=== PATIENT | female | born 1940 | race Hispanic/Latino ===

== ENCOUNTER 2017-05-25 10:01 | Inpatient (IN) | payer MEDICARE ==
[2017-05-25 11:02] LABS: ALT (SGPT) 26 U/L (8-55); AST (SGOT) 23 U/L (5-34); Albumin 3.6 g/dL (3.4-4.8); Alkaline Phosphatase 71 U/L (40-150); Anion Gap 13 mmol/L (10-20); BUN (Urea Nitrogen) 39 mg/dL (9.8-20.1); Bilirubin, Total 0.6 mg/dL (0.2-1.2); Calc. Creatinine Clearance 0 mL/min (70-130); Carbon Dioxide 21 mmol/L (23-31); Chloride 108 mmol/L (98-107); Estimated GFR-MDRD 26; Globulin 3.2 g/dL (2.4-3.5); Glucose 101 mg/dL (83-110); Potassium 3.7 mmol/L (3.5-5.1); Protein, Total 6.8 g/dL (6.0-8.3); Sodium 138 mmol/L (136-145)
[2017-05-25 11:10] LABS: Band 48 % (5-11); Lymphocytes 5 % (21-51); MDiff Complete? YES; Mean Corpuscular Hemoglobin 32.3 pg (27.0-31.0); Mean Platelet Volume 9.9 fL (7.4-10.4); Metamyelocyte 10 % (0-0); Monocytes 4 % (0-10); Neutrophil 31 % (42-75); PLT Morphology Comment Appears Adequate; Platelet Count 230 thou/uL (130-400); RBC Distribution Width 12.6 % (11.5-14.5); Reactive Lymphocytes 2 % (0-10); Red Blood Cell (RBC) Count 3.73 mill/uL (4.20-5.40); Vacuoles SLIGHT; White Blood Cell (WBC) Count 13.5 thou/uL (4.8-10.8)
[2017-05-25 11:14] LABS: CKMB 4.5 ng/mL (0-6.6); Troponin I Less than 0.010 ng/mL (< 0.028)
[2017-05-25 13:09] LABS: Bilirubin Negative (Negative); Blood, Urine Negative (Negative); Clarity CLOUDY (Clear); Glucose, Urine (Dipstick) Negative (Negative); Leukocyte Trace (Negative); Nitrite Negative (Negative); Protein, Urine (Dipstick) Negative (Neg-Trace); Urobilinogen 0.2 mg/dL (0.2-1.0)
[2017-05-25 13:11] LABS: Bacteria/HPF None Seen HPF (None Seen); RBC/HPF 0-3 HPF (0-3); Squamous Epithelial 0-3 HPF (0-3); WBC/HPF 0-3 HPF (0-3)
[2017-05-25 13:13] LABS: Pathc Cast-AUWi Flag 4.94 (0-2.49)
[2017-05-25 13:28] LABS: Crystals/HPF 1+ CA OXALATE HPF (Negative); Hyaline Casts/LPF 4-6 HYALINE CAST LPF (0-3 Hyaline); Other Casts/LPF None Seen LPF (0-3 Hyaline)
[2017-05-25] MEDS ORDERED: Ondansetron HCl/PF 4 MG/2 ML Vial IVP PRN (15:35)
[2017-05-25] MEDS ORDERED: Acetaminophen 325 MG TAB PO PRN (15:35)
[2017-05-25] MEDS ORDERED: Guaifenesin DM 100-10/5 ML UDCUP PO PRN (15:35)
[2017-05-25 16:57] VITALS: BMI 22.6
--- NOTE | 2017-05-25 16:57 | HP ---
REASON FOR ADMISSION/CHIEF COMPLAINT: Sepsis, gastroenteritis with severe dehydration. HISTORY OF PRESENT ILLNESS: The patient gives history of having severe diarrhea from Tuesday. She had first episode of stool incontinence on Tuesday after she went to a green party. She had one episode of vomiting as well on Tuesday night. From Tuesday 2:00 p.m. on, the patient has been having watery diarrhea without blood or mucus in the stool. It is not foul smelling. The patient states that each time she tries to drink the fluid does not stay and the patient has to rae to the bathroom. She has not taken any recent antibiotics. The patient has some mild abdominal discomfort from going many times to the restroom. No complaints of fever, cough, or expectoration. No complaints of urinary frequency or urgency. No other family members are sick with diarrhea who ate at the green party. PAST MEDICAL AND SURGICAL HISTORY: Dementia, diagnosed in 2012; valvular disorder; hysterectomy; dyslipidemia; hypothyroidism; osteoarthritis. CURRENT MEDICATIONS: The patient is on levothyroxine 50 mcg p.o. daily, diclofenac extended release 75 mg p.o. daily, citalopram 5 mg p.o. daily, Seroquel 25 mg p.o. daily. ALLERGIES: No known drug allergies. PERSONAL HISTORY: She does not abuse alcohol or drugs. No history of smoking. FAMILY HISTORY: Mother in her 30s from unknown cause. Father at the age of 65 years, he has had CVA. REVIEW OF SYSTEMS: The following complete review of systems was negative, unless otherwise mentioned in the HPI or below: Constitutional: Weight loss or gain, ability to conduct usual activities. Skin: Rash, itching. Eyes: Double vision, pain. ENT/Mouth: Nose bleeding, neck stiffness, pain, tenderness. Cardiovascular: Palpitations, dyspnea on exertion, orthopnea. Respiratory: Shortness of breath, wheezing, cough, hemoptysis, fever or night sweats. Gastrointestinal: Poor appetite, abdominal pain, heartburn, nausea, vomiting, constipation, or diarrhea. Genitourinary: Urgency, frequency, dysuria, nocturia. Musculoskeletal: Pain, swelling. Neurologic/Psychiatric: Anxiety, depression. Allergy/Immunologic: Skin rash, bleeding tendency. PHYSICAL EXAMINATION: GENERAL: The patient is a 76-year-old female, who is currently not in any acute distress. VITAL SIGNS: Blood pressure on arrival was 70/50, pulse 78 per minute, respiratory rate 14 per minute, temperature 97.6 degrees Fahrenheit, saturating 99% on room air. NECK: Supple, no elevated JVD. HEENT: Eyes: Extraocular muscles intact. Pupils are reacting to light. Oral Cavity: Mucous membranes are dry. No exudates or congestion. CARDIOVASCULAR: S1, S2 heard. RESPIRATORY: Air entry 1+ bilaterally. No rales or rhonchi. ABDOMEN: Soft, bowel sounds heard. No tenderness, rigidity or guarding. EXTREMITIES: No peripheral edema or calf tenderness. VASCULAR SYSTEM: Peripheral pulses 1+ bilateral, no ischemic ulcerations or gangrene. CENTRAL NERVOUS SYSTEM: No gross focal deficits seen. The patient is alert and awake, but not fully oriented. PSYCHIATRIC: The patient's mood is euthymic. No obvious hallucinations or delusions. LABORATORY AND X-RAY FINDINGS: White count of 13, hemoglobin and hematocrit 12 and 36, platelet count 230 with 31% neutrophils, 48% bands, 10% metamyelocytes. Serum bicarbonate is 21, BUN 39, creatinine 1.9, serum glucose 101. Liver enzymes are within normal limits. First set of cardiac enzymes are negative. Albumin is 3.6. Lipase is 7. UA shows trace leukocyte esterase, 0 to 3 wbc's, and no bacteria. EKG done shows normal sinus rhythm at 62 beats per minute. CLINICAL IMPRESSION AND PLAN: The patient will be admitted to medical floor for sepsis, acute kidney injury, severe dehydration, acute gastroenteritis. We will obtain blood, urine, and stool cultures including Clostridium difficile. The patient will be placed on meropenem 1 gram q.8 hourly along with normal saline at 80 mL per hour. She has gotten 2 liters of bolus normal saline in the ER. We will continue her citalopram, levothyroxine, and Seroquel as before. She will be on clear liquid diet until her diarrhea and gastrocolic reflux settles down. CODE STATUS: FULL. I have discussed this with the patient's [id number] and son at bedside and the patient as well. SAMINA
[2017-05-25] MEDS: Sodium Chloride 0.9% 1,000 ML IV SCH (17:27)
[2017-05-25] MEDS: Meropenem 1 GM in Sodium Chloride 0.9% 100 ML IVPB SCH (17:58)
[2017-05-25] MEDS ORDERED: Meropenem 1 GM in Sterile Water 20 ML SLOW IVP SCH (18:00)
[2017-05-25] MEDS: Famotidine 20 MG TAB PO SCH (20:04)
[2017-05-25] MEDS ORDERED: Prevnar 13-Val Conj/PF 0.5 ML SYRINGE IM ONE (21:00)
[2017-05-25] MEDS ORDERED: Meropenem 1 GM in Sodium Chloride 0.9% 100 ML IVPB SCH (22:00)
[2017-05-26] MEDS: Meropenem 1 GM in Sodium Chloride 0.9% 100 ML IVPB SCH ×2 (02:02→09:30)
[2017-05-26] MEDS: Sodium Chloride 0.9% 1,000 ML IV SCH ×2 (04:32→15:25)
[2017-05-26] MEDS: Levothyroxine Sodium 50 MCG TAB PO SCH (05:18)
[2017-05-26 05:33] LABS: ALT (SGPT) 19 U/L (8-55); AST (SGOT) 25 U/L (5-34); Albumin 2.8 g/dL (3.4-4.8); Alkaline Phosphatase 61 U/L (40-150); Anion Gap 11 mmol/L (10-20); BUN (Urea Nitrogen) 30 mg/dL (9.8-20.1); Bilirubin, Total 0.4 mg/dL (0.2-1.2); Calc. Creatinine Clearance 45 mL/min (70-130); Calcium 7.8 mg/dL (7.8-10.44); Carbon Dioxide 18 mmol/L (23-31); Chloride 112 mmol/L (98-107); Estimated GFR-MDRD 52; Globulin 2.3 g/dL (2.4-3.5); Glucose 73 mg/dL (83-110); Potassium 3.6 mmol/L (3.5-5.1); Protein, Total 5.1 g/dL (6.0-8.3); Sodium 137 mmol/L (136-145)
[2017-05-26 05:44] LABS: Band 23 % (5-11); Eosinophils 1 % (0-10); Lymphocytes 22 % (21-51); MDiff Complete? YES; Mean Corpuscular HGB CONC 33.8 g/dL (32.0-36.0); Mean Corpuscular Hemoglobin 33.1 pg (27.0-31.0); Mean Corpuscular Volume 98.1 fl (81.0-99.0); Mean Platelet Volume 10.6 fL (7.4-10.4); Metamyelocyte 1 % (0-0); Monocytes 7 % (0-10); Neutrophil 45 % (42-75); PLT Morphology Comment Appears Adequate; Platelet Count 195 thou/uL (130-400); RBC Distribution Width 12.5 % (11.5-14.5); Red Blood Cell (RBC) Count 3.02 mill/uL (4.20-5.40); White Blood Cell (WBC) Count 8.9 thou/uL (4.8-10.8)
[2017-05-26] MEDS: Escitalopram Oxalate 10 mg Tablet PO SCH (09:00)
[2017-05-26] MEDS ORDERED: Enoxaparin Sodium 30 MG/0.3 ML SYRINGE SC SCH (09:00)
[2017-05-26] MEDS: ALPRAZolam 1 MG TAB PO PRN (12:22)
--- NOTE | 2017-05-26 13:53 | PDOC.PN ---
- Subjective Encounter Start Date: 05/26/17 Encounter Start Time: 08:40 Subjective: son at bedside mentions she still is going multiple times to restroom -: no nausea, is tolerating liq diet - Objective Resuscitation Status: Resuscitation Status FULL:Full Resuscitation MAR Reviewed: Yes Vital Signs & Weight: Vital Signs (12 hours) Temp Pulse Resp BP Pulse Ox 05/26/17 11:26 97.8 F 69 18 103/63 96 05/26/17 08:00 98.6 F 70 16 110/72 96 05/26/17 04:00 98.1 F 70 18 101/62 91 L Weight Weight 136 lb 2 oz I&O: 05/25/17 05/26/17 05/27/17 06:59 06:59 06:59 Intake Total 1690 Balance 1690 Result Diagrams: 05/26/17 04:34 05/26/17 04:34 Phys Exam - Physical Examination HEENT: PERRLA, moist MMs Neck: no JVD, supple Respiratory: no wheezing, no rales Cardiovascular: RRR, no significant murmur Gastrointestinal: soft, non-tender, no distention, positive bowel sounds Musculoskeletal: no edema, pulses present Neurological: non-focal, moves all 4 limbs Dx/Plan (1) Sepsis Code(s): A41.9 - SEPSIS, UNSPECIFIED ORGANISM Status: Acute Qualifiers: Sepsis type: sepsis due to unspecified organism Qualified Code(s): A41.9 - Sepsis, unspecified organism (2) Acute gastroenteritis Code(s): K52.9 - NONINFECTIVE GASTROENTERITIS AND COLITIS, UNSPECIFIED Status : Acute (3) Dehydration Code(s): E86.0 - DEHYDRATION Status: Acute Comment: severe-resolving (4) KATHERYN (acute kidney injury) Code(s): N17.9 - ACUTE KIDNEY FAILURE, UNSPECIFIED Status: Acute Comment: resolving (5) Metabolic acidosis Code(s): E87.2 - ACIDOSIS Status: Acute (6) Dementia Code(s): F03.90 - UNSPECIFIED DEMENTIA WITHOUT BEHAVIORAL DISTURBANCE Status: Chronic Qualifiers: Dementia type: unspecified type (7) Dyslipidemia Code(s): E78.5 - HYPERLIPIDEMIA, UNSPECIFIED Status: Chronic (8) Hypothyroidism Code(s): E03.9 - HYPOTHYROIDISM, UNSPECIFIED Status: Chronic Qualifiers: Hypothyroidism type: unspecified - Plan change meropenem to cefepime and flagyl -: one set of stool cs and cdiff are -ve -: repeat stool cx and cdiff in view of profuse diarrhea -: gentle iv hydration, clear liq diet until diarrhea stabilizes -: GI consult for help if infectious agents are r/o * . Review of Systems - Medications/Allergies Allergies/Adverse Reactions: Allergies Allergy/AdvReac Type Severity Reaction Status Date / Time No Known Allergies Allergy Verified 05/20/16 20:01 Medications: Current Medications Acetaminophen (Tylenol) 650 mg PO Q4H PRN PRN Reason: Headache/Fever or Pain Alprazolam (Xanax) 1 mg PO Q8H PRN PRN Reason: Agitation Last Admin: 05/26/17 12:22 Dose: 1 mg Enoxaparin Sodium (Lovenox) 40 mg SC 0900 [facility] Escitalopram Oxalate (Lexapro) 5 mg PO DAILY [facility] Last Admin: 05/26/17 09:00 Dose: 5 mg Famotidine (Pepcid) 20 mg PO Q24HR [facility] Last Admin: 05/25/17 20:04 Dose: 20 mg Guaifenesin/Dextromethorphan (Robitussin Dm) 15 ml PO Q4H PRN PRN Reason: Cough Sodium Chloride (Normal Saline 0.9%) 1,000 mls @ 80 mls/hr IV .[id number] [facility] Last Admin: 05/26/17 04:32 Dose: Not Given Cefepime HCl 1 gm/ Sodium (Chloride) 100 mls @ 200 mls/hr IVPB Q12HR [facility] Metronidazole 500 mg/ Device 100 mls @ 100 mls/hr IVPB Q8HR [facility] Levothyroxine Sodium (Synthroid) 50 mcg PO 0600 [facility] Last Admin: 05/26/17 05:18 Dose: 50 mcg Ondansetron HCl (Zofran) 4 mg IVP Q6H PRN PRN Reason: Nausea/Vomiting Quetiapine Fumarate (Seroquel) 25 mg PO DAILY [facility] Last Admin: 05/26/17 09:00 Dose: 25 mg
[2017-05-26] MEDS: metroNIDAZOLE 500 MG in Premix Bag 1 BAG IVPB SCH ×2 (15:15→20:51)
[2017-05-26] MEDS: Cefepime 1 GM, Admixture Fee 1 EACH in Sodium Chloride 0.9% 10 ML SLOW IVP SCH (20:51)
[2017-05-26] MEDS: Famotidine 20 MG TAB PO SCH (20:51)
[2017-05-26] MEDS ORDERED: Cefepime 1 GM in Sodium Chloride 0.9% 100 ML IVPB SCH (21:00)
[2017-05-27 04:20] LABS: #Eosinphils 0.5 thou/uL (0.0-0.7); #Lymphocytes 2.7 thou/uL (1.20-3.40); #Monocytes 0.7 thou/uL (0.11-0.59); %Basophils 0.4 % (0.0-1.0); %Monocytes 8.6 % (0.0-10.0); Hemoglobin 9.9 g/dL (12.0-16.0); Mean Corpuscular HGB CONC 34.1 g/dL (32.0-36.0); Mean Corpuscular Hemoglobin 33.2 pg (27.0-31.0); Mean Corpuscular Volume 97.4 fl (81.0-99.0); Mean Platelet Volume 9.9 fL (7.4-10.4); Platelet Count 214 thou/uL (130-400); RBC Distribution Width 12.7 % (11.5-14.5); Red Blood Cell (RBC) Count 2.99 mill/uL (4.20-5.40); White Blood Cell (WBC) Count 7.9 thou/uL (4.8-10.8)
[2017-05-27 04:27] LABS: Anion Gap 6 mmol/L (10-20); BUN (Urea Nitrogen) 17 mg/dL (9.8-20.1); Calc. Creatinine Clearance 64 mL/min (70-130); Calcium 7.8 mg/dL (7.8-10.44); Carbon Dioxide 20 mmol/L (23-31); Chloride 117 mmol/L (98-107); Estimated GFR-MDRD 79; Glucose 74 mg/dL (83-110); Potassium 3.4 mmol/L (3.5-5.1); Sodium 140 mmol/L (136-145)
[2017-05-27] MEDS: Levothyroxine Sodium 50 MCG TAB PO SCH (05:35)
[2017-05-27] MEDS: metroNIDAZOLE 500 MG in Premix Bag 1 BAG IVPB SCH ×3 (05:35→20:11)
[2017-05-27] MEDS: Sodium Chloride 0.9% 1,000 ML IV SCH ×2 (05:35→18:49)
[2017-05-27] MEDS: Escitalopram Oxalate 10 mg Tablet PO SCH (09:34)
[2017-05-27] MEDS: Cefepime 1 GM, Admixture Fee 1 EACH in Sodium Chloride 0.9% 10 ML SLOW IVP SCH ×2 (09:39→20:12)
[2017-05-27] MEDS: Enoxaparin Sodium 40 MG/0.4 ML SYRINGE SC SCH (09:41)
--- NOTE | 2017-05-27 10:26 | CON ---
DATE OF CONSULTATION: 05/26/2017 REFERRING PHYSICIAN: Dr. Aleksandr Hagen. REASON FOR CONSULTATION: Severe diarrhea, sepsis. HISTORY OF PRESENT ILLNESS: Ms. Rasheeda Ho is a 76-year-old fragile looking female who is a patie nt of Dr. Anthony Gary. She has been seeing Dr. Gary over the last couple of years. The patie nt is sleepy at the present time. Apparently, she got some medicine for anxiety. The patient was se en in room along with the patient's [id number]-uf-stn and son. The patient's family tells me that she had no GI problem before this Tuesday. Apparently, she went out to eat food with grandson. She had s ome barbecue and some of the food on Tuesday evening. Now she says she is having severe nausea, vomit ing, and multiple loose stools. Before that she actually had no GI problems at all. Apparently, she went to the park to have this dinner with the family. Two of other family members also had same pro blem. The patient's nausea and vomiting subsided. However, the diarrhea persisted. The patient als o felt very weak and lethargic, minimally energy. The patient has a history of Alzheimer dementia ov er the last couple of years. The patient was taking care of herself like bathing and eating, etc., b ut recently she is not able to taking care of herself. Yesterday, bowel function is difficult to man age and does have incontinence off and on. The patient has had no recent antibiotic intake. There i s no history fever or chills. No hematochezia, melena, or any hematemesis. The patient had no prior GI symptoms. ALLERGIES: None. SOCIAL HISTORY: The patient is from her , claims he left her 2 years ago. She does not smoke or drink alcohol. MEDICAL ILLNESSES: 1. Dementia since 2012. 2. History of hysterectomy. 3. Dyslipidemia. 4. Hypothyroidism. 5. Osteoarthritis. MEDICATIONS: At time of admission include, 1. Levothyroxine 50 mcg once a day. 2. Diclofenac ER 70 mg p.o. once a day. 3. Citalopram 5 mg p.o. daily. 4. Seroquel 25 mg once a day. FAMILY HISTORY: Mother in her 30s from unknown cause. Father at age of 60 years, had CVA. No family history of any cancer. No heart disease. REVIEW OF SYSTEMS: Constitutional: No weight loss, no fever, has good appetite. Central nervous sy stem: No history of TIA, no chronic headache, no syncope, no seizure disorder. Respiratory: No his tory of chronic cough, hemoptysis, dyspnea. Cardiovascular: No chest pain. No palpitation. No dys pnea, orthopnea or PND. Gastrointestinal: Nausea and vomiting and also severe diarrhea. The patien t has had no stools since late last night. The patient was seen at 4:00 and whole day has more diarr hea. Genitourinary: No history of dysuria or frequent urination. Neurologic/Psychiatric: History of anxiety and depression. PHYSICAL EXAMINATION: GENERAL: The patient appears sleepy at the present time. She is in no distress. VITAL SIGNS: Afebrile, pulse 78, blood pressure 120/70. HEENT: Conjunctivae clear. NECK: Supple. No adenitis or thyromegaly noted. CARDIOVASCULAR: First and second heart sounds normal. LUNGS: Clear to auscultation. ABDOMEN: Soft to palpate. Abdomen is nondistended. Abdomen is nontender. There is no organomegaly or masses. EXTREMITIES: No edema. LABORATORY: On admission, WBC count was 13,000, now is 8.9, bandemia of 23,000. Polymorphs 42. Hem oglobin 10, hematocrit 29.7. Platelet count 175,000. Serum sodium 137; potassium 3.6; chloride 112; bicarbonate 18; BUN is 30, which was 39 on admission with rehydration coming down to 30; creatinine on admission 1.90, coming down to 1.03. Serum albumin is slightly low at 2.8, total protein 5.1. St ool for C. difficile, Campylobacter culture everything came back negative. Blood cultures negative f or any bacteria. CLINICAL IMPRESSION: 1. A 76-year-old female with acute onset of nausea and vomiting, and diarrhea. This happened Tuesday evening after her meals in a park with the family. Two of her family members had same symptoms ____ _. 2. Prerenal azotemia based on the history, I believe she most likely food poisoning or infecti ous diarrhea. The diarrhea actually stopped over the last 12 hours. The stools study negative. She is on empiric antibiotic therapy. She has clear liquid at the present time. RECOMMENDATIONS: Continue clear liquid diet until tomorrow. There is no record of diarrhea, conside r advancing diet. From a GI standpoint, no further recommendations.
--- NOTE | 2017-05-27 12:47 | PRG ---
DATE OF SERVICE: 05/27/2017 SUBJECTIVE: Ms. Rasheeda Ho is a 76-year-old female with nausea, vomiting, and diarrhea. The gianna ent's nausea and vomiting resolved. Also, the diarrhea seems to be slowing down. The patient had no diarrhea towards yesterday, but she has some stool last night. This morning, she had no stool. She is tolerating diet. She is sleeping most of the time. She appears very comfortable, in no distress . OBJECTIVE: VITAL SIGNS: Temperature 97.3 degrees Fahrenheit, pulse is 51, blood pressure 152/57. CARDIOVASCULAR: Lungs within normal limits. ABDOMEN: Soft to palpate. Abdomen is nondistended. Abdomen is nontender. LABORATORY DATA: Shows the BUN coming back to normal. Chem-7 today shows sodium of 140, potassium 3 .4, chloride 117, bicarbonate 20, BUN is back to normal at 17, creatinine 0.72. CBC shows WBC 7900, hemoglobin 9.9, hematocrit 29.1. RECOMMENDATIONS: 1. Diet as tolerated. 2. As the diarrhea appears resolving, from GI standpoint, she can be discharged home in the next 24 hours.
[2017-05-27] MEDS ORDERED: Potassium Chloride 20 MEQ TAB PO SCH (16:45)
--- NOTE | 2017-05-27 16:50 | PDOC.PN ---
- Subjective Encounter Start Date: 05/27/17 Encounter Start Time: 16:48 Ms. Ho was seen today in follow-up. She has been eating solid food, without difficulty. She denies any abdominal pain, and the diarrhea has resolved. - Objective Resuscitation Status: Resuscitation Status FULL:Full Resuscitation MAR Reviewed: Yes Vital Signs & Weight: Vital Signs (12 hours) Temp Pulse Resp BP Pulse Ox 05/27/17 08:00 97.3 F L 51 L 18 05/27/17 07:52 97.3 F L 51 L 18 152/57 H 91 L Weight Weight 136 lb 2 oz I&O: 05/26/17 05/27/17 05/28/17 06:59 06:59 06:59 Intake Total 1690 2160 Balance 1690 2160 Result Diagrams: 05/27/17 03:44 05/27/17 03:44 Phys Exam - Physical Examination HEENT: PERRLA Respiratory: no wheezing, no rales, no rhonchi, clear to auscultation bilateral Cardiovascular: RRR, no significant murmur, no rub Gastrointestinal: soft, non-tender, no distention, positive bowel sounds Musculoskeletal: no edema, pulses present Neurological: non-focal Dx/Plan (1) Acute gastroenteritis Code(s): K52.9 - NONINFECTIVE GASTROENTERITIS AND COLITIS, UNSPECIFIED Status : Acute (2) KATHERYN (acute kidney injury) Code(s): N17.9 - ACUTE KIDNEY FAILURE, UNSPECIFIED Status: Acute Comment: resolving (3) Dementia Code(s): F03.90 - UNSPECIFIED DEMENTIA WITHOUT BEHAVIORAL DISTURBANCE Status: Chronic Qualifiers: Dementia type: unspecified type - Plan * Gastroenteritis- presumed infectious- improved * Acute kidney injury- also improved * Stool studies are negative, and if she has continued improvement, suspect she can be discharged home in AM.
[2017-05-27] MEDS: Famotidine 20 MG TAB PO SCH (20:12)
[2017-05-28] MEDS: ALPRAZolam 1 MG TAB PO PRN (02:56)
[2017-05-28] MEDS: Sodium Chloride 0.9% 1,000 ML IV SCH (05:58)
[2017-05-28] MEDS: metroNIDAZOLE 500 MG in Premix Bag 1 BAG IVPB SCH (05:59)
[2017-05-28] MEDS: Levothyroxine Sodium 50 MCG TAB PO SCH (05:59)
[2017-05-28 07:46] VITALS: BP 137/76; TEMP 98.1
[2017-05-28] MEDS: Cefepime 1 GM, Admixture Fee 1 EACH in Sodium Chloride 0.9% 10 ML SLOW IVP SCH (10:08)
[2017-05-28] MEDS: Escitalopram Oxalate 10 mg Tablet PO SCH (10:08)
[2017-05-28] MEDS: Enoxaparin Sodium 40 MG/0.4 ML SYRINGE SC SCH (10:08)
--- NOTE | 2017-05-28 13:47 | PDOC.PN ---
- Subjective Encounter Start Date: 05/28/17 Encounter Start Time: 13:46 Ms. Ho is feeling much better this morning. She has much less diarrhea . - Objective Resuscitation Status: Resuscitation Status FULL:Full Resuscitation MAR Reviewed: Yes Vital Signs & Weight: Vital Signs (12 hours) Temp Pulse Resp BP Pulse Ox 05/28/17 08:00 98.1 F 56 L 18 91 L 05/28/17 07:44 98.1 F 56 L 18 137/76 91 L 05/28/17 06:10 97.8 F 61 16 147/85 H 93 L Weight Weight 136 lb 2 oz I&O: 05/27/17 05/28/17 05/29/17 06:59 06:59 06:59 Intake Total 2160 2990 Balance 2160 2990 Result Diagrams: 05/27/17 03:44 05/27/17 03:44 Phys Exam - Physical Examination HEENT: PERRLA Respiratory: no wheezing, no rales, no rhonchi, clear to auscultation bilateral Cardiovascular: RRR, no significant murmur, no rub Gastrointestinal: soft, non-tender, no distention, positive bowel sounds Musculoskeletal: no edema Dx/Plan (1) Acute gastroenteritis Code(s): K52.9 - NONINFECTIVE GASTROENTERITIS AND COLITIS, UNSPECIFIED Status : Acute (2) KATHERYN (acute kidney injury) Code(s): N17.9 - ACUTE KIDNEY FAILURE, UNSPECIFIED Status: Acute Comment: resolving (3) Dementia Code(s): F03.90 - UNSPECIFIED DEMENTIA WITHOUT BEHAVIORAL DISTURBANCE Status: Chronic Qualifiers: Dementia type: unspecified type - Plan * Gastroenteritis- presumed infectious- resolving * Stable for discharge home..
--- NOTE | 2017-05-28 19:59 | EKG ---
Test Reason : Blood Pressure : / mmHG Vent. Rate : 062 BPM Atrial Rate : 062 BPM P-R Int : 148 ms QRS Dur : 086 ms QT Int : 426 ms P-R-T Axes : 061 027 049 degrees QTc Int : 432 ms Normal sinus rhythm Nonspecific ST and T wave abnormality Abnormal ECG Confirmed by J CARLOS GILL ([id number]), desk editor LEWIS MARIN ([id number]) on 05/28/2017 7:59:18 PM Referred By: Confirmed By:J CARLOS GILL
--- NOTE | 2017-05-28 23:57 | DIS ---
DATE OF ADMISSION: 05/25/2017 DATE OF DISCHARGE: 05/28/2017 PRIMARY CARE PHYSICIAN: Dr. Anthony Gary. DISCHARGE DISPOSITION: Home. PRIMARY DISCHARGE DIAGNOSES: 1. Gastroenteritis, presumed infectious. 2. Dementia. 3. History of hypothyroidism. 4. Osteoarthritis. 5. Dyslipidemia. DISCHARGE MEDICATIONS: Include Flagyl or metronidazole 500 mg 3 times a day for 3 days, Seroquel 25 mg at bedtime, levothyroxine 50 mcg daily, escitalopram 5 mg daily, diclofenac 75 mg twice a day, and alprazolam 0.25 mg twice a day as needed. CODE STATUS: FULL CODE. ALLERGIES: No known drug allergies. HOSPITAL COURSE: Ms. Ho is a very pleasant 76-year-old female who was brought to the hospital af ter she had an explosive watery diarrhea which had been going on for several days prior to admission. She was admitted and started on IV fluids as well as empiric IV antibiotics. She was evaluated by Gastroenterology. It was felt that the diarrhea was likely due to a gastroenteritis, likely infectio us. During the course of her admission, the diarrhea slowed down. She initially had a leukocytosis which resolved and also had an acute renal failure due to dehydration and this resolved as well. At the time of discharge, there were no warning signs such as fever, abdominal pain, or blood in the sto ols and she was discharged home to continue a course of Flagyl and to have [facility].
--- NOTE | 2017-06-03 08:10 | PQF ---
GABRIEL BOBO TONI MD [id number] CLINICAL DOCUMENTATION CLARIFICATION FORM: POST DISCHARGE YOUR INPUT IS NEEDED TO CORRECTLY CODE A DIAGNOSIS FOR YOUR PATIENT. DATE: 06/03/2017 ATTN: Dr. Rich Please exercise your independent, professional judgment in responding to the clarification form. Clinical indicators are provided on the bottom of this form for your review Please check appropriate box(s) to clarify if the following diagnosis has been ruled in or ruled out: Sepsis [ X ] Ruled in diagnosis [ ] Continue to treat [ ] Resolved [ ] Ruled out diagnosis [ ] Cannot rule out diagnosis [ ] Other diagnosis (please specify) [ ] Unable to determine In addition, please specify: Present on Admission (POA): [X ] Yes [ ] No [ ] Unable to determine For continuity of documentation, please document condition throughout progress notes and discharge summary. Thank You. CLINICAL INDICATORS - SIGNS / SYMPTOMS / LABS Per H&P: The patient will be admitted to the medical floor for sepsis, acute kidney injury, severe dehydration, acute gastroenteritis. Per 05/26 Hospitalist progress note: Sepsis. Per Consultation note: Severe diarrhea, sepsis. RISK FACTORS (per discharge summary) Presumed infectious gastroenteritis. TREATMENTS Meropenem 1 gram q 8. Cefepime IV q 12.. Flagyl. IV fluids 80 mL per hour. . (This form is maintained as a part of the permanent medical record) 2014 [employer]. All Rights Reserved Francisca [email or web address] [phone] [email or web address]
== END 2017-05-28 14:58 | disposition home or self-care (01) | DRG 872 ==
LOC: ERS 10:01 → T4-A 14:36
PROVIDERS: ADMIT Internal Medicine; ATTEND Internal Medicine
DX: A41.9 Sepsis, unspecified organism (principal); N17.9 Acute kidney failure, unspecified; E87.2 Acidosis; A09 Infectious gastroenteritis and colitis, unspecified; E86.0 Dehydration; G30.9 Alzheimer's disease, unspecified; F02.80 Dementia in other diseases classified elsewhere, unspecified severity, without behavioral disturbance, psychotic disturbance, mood disturbance, and anxiety; E78.5 Hyperlipidemia, unspecified; E03.9 Hypothyroidism, unspecified; M19.90 Unspecified osteoarthritis, unspecified site; Z79.899 Other long term (current) drug therapy
CPT/HCPCS: 36415; 51701; 80048; 80053; 81003; 81015; 82553; 83605; 83690; 84484; 85025; 85060; 87040; 87045; 87046; 87086; 87324; 87449; 87899; 90471; 90670; 93005; 96360; 96361; A4216; A4353; G0009; J0692; J1650; J2185; J7050

== ENCOUNTER 2018-06-25 19:33 | Inpatient (IN) | payer MEDICARE ==
[2018-06-25 20:19] LABS: Bilirubin Negative (Negative); Blood, Urine Trace (Negative); Clarity CLOUDY (Clear); Glucose, Urine (Dipstick) Negative (Negative); Leukocyte Large (Negative); Nitrite Positive (Negative); Protein, Urine (Dipstick) 30 mg/dL (Neg-Trace); Specific Gravity, Urine 1.014 (1.002-1.036); Urobilinogen 0.2 mg/dL (0.2-1.0); pH, Urine 5.5 (5.0-9.0)
[2018-06-25 20:21] LABS: Bacteria/HPF 4+ HPF (None Seen); RBC/HPF 0-3 HPF (0-3); Squamous Epithelial None Seen HPF (0-3)
[2018-06-25 20:22] LABS: Pathc Cast-AUWi Flag 4.48 (0-2.49)
[2018-06-25 20:29] LABS: Hyaline Casts/LPF 0-3 HYALINE CAST LPF (0-3 Hyaline); Other Casts/LPF None Seen LPF (0-3 Hyaline)
[2018-06-25 20:30] LABS: #Eosinphils 0.1 thou/uL (0.0-0.7); #Monocytes 0.1 thou/uL (0.11-0.59); #Neutrophils 6.4 thou/uL (1.40-6.50); %Basophils 0.3 % (0.0-1.0); %Eosinophils 0.8 % (0.0-10.0); %Lymphocytes 13.5 % (21.0-51.0); %Monocytes 1.3 % (0.0-10.0); %Neutrophils 84.1 % (42.0-75.0); Hemoglobin 8.7 g/dL (12.0-16.0); Mean Corpuscular HGB CONC 32.6 g/dL (32.0-36.0); Mean Corpuscular Hemoglobin 29.1 pg (27.0-31.0); Mean Corpuscular Volume 89.1 fL (78.0-98.0); Mean Platelet Volume 9.6 fL (7.4-10.4); Platelet Count 256 thou/uL (130-400); RBC Distribution Width 15.2 % (11.5-14.5); Red Blood Cell (RBC) Count 2.99 mill/uL (4.20-5.40); White Blood Cell (WBC) Count 7.7 thou/uL (4.8-10.8)
[2018-06-25 20:52] LABS: ALT (SGPT) 38 U/L (8-55); AST (SGOT) 39 U/L (5-34); Albumin 2.8 g/dL (3.4-4.8); Alkaline Phosphatase 250 U/L (40-150); Anion Gap 17 mmol/L (10-20); BUN (Urea Nitrogen) 74 mg/dL (9.8-20.1); Bilirubin, Total 0.3 mg/dL (0.2-1.2); Calc. Creatinine Clearance 0 mL/min (70-130); Calcium 7.7 mg/dL (7.8-10.44); Carbon Dioxide 20 mmol/L (23-31); Chloride 102 mmol/L (98-107); Estimated GFR-MDRD 19; Globulin 2.9 g/dL (2.4-3.5); Glucose 121 mg/dL (83-110); Potassium 4.2 mmol/L (3.5-5.1); Protein, Total 5.7 g/dL (6.0-8.3); Sodium 135 mmol/L (136-145)
[2018-06-25] MEDS ORDERED: Ondansetron PF 4 MG/2 ML Vial ONE (21:26)
[2018-06-25] MEDS ORDERED: cefTRIAXone\\ROCEPHIN 1 GM VIAL ONE (21:26)
[2018-06-25 21:31] LABS: INR-International Normal Ratio 1.2; Prothrombin Time 14.8 SEC (12.0-14.7)
--- NOTE | 2018-06-25 22:09 | CT ---
CT HEAD WITHOUT CONTRAST: Date: 06-25-18 Comparison: None. History: Syncope. Technique: Axial CT imaging at 5 mm intervals from vertex through the skull base without contrast. FINDINGS: Imaged paranasal sinuses and mastoid air cells well aerated. No displaced calvarial fracture, intracr anial hemorrhage, midline shift or mass effect. There is moderate diffuse cerebral volume loss with associated prominence of the CSF containing space s. IMPRESSION: Cerebral volume loss. No intracranial hemorrhage or displaced calvarial fracture. POS: OFF
--- NOTE | 2018-06-25 22:20 | RAD ---
Portable frontal chest radiograph: 06/25/2018 COMPARISON: 05/20/2016 HISTORY: Syncope FINDINGS: Lungs are clear. Heart and mediastinal contours appear within normal limits. IMPRESSION: No acute findings.
[2018-06-25] MEDS ORDERED: Pantoprazole 40 MG VIAL ONE (22:47)
[2018-06-26 00:25] VITALS: BMI 26.3
[2018-06-26] MEDS ORDERED: Sodium Chloride 0.9% 1,000 ML IV SCH (00:43)
[2018-06-26] MEDS ORDERED: Ondansetron ODT 4 MG TAB SL PRN (00:43)
[2018-06-26] MEDS ORDERED: Ondansetron PF 4 MG/2 ML Vial IVP PRN (00:43)
[2018-06-26] MEDS ORDERED: HYDROcodone/Acetaminophen 5/325 mg Tablet PO PRN ×2 (00:43)
[2018-06-26] MEDS ORDERED: Acetaminophen 325 MG TAB PO PRN (00:43)
--- NOTE | 2018-06-26 04:51 | HP ---
CHIEF COMPLAINT: Syncope. HISTORY OF PRESENT ILLNESS: Ms. Ho is a 77-year-old woman, who was brought in by EMS due to a syncopal episode. Apparently 2 family members were helping her walk when she fainted. They lowered her to the ground and state that she recovered within 30 seconds. She had no seizure-like activity. Did not sustain any injuries. She described to have a "gurgling" type breathing, this resolved. Per ED note, she was reported to have complained of abdominal/flank pain and experienced 3 episodes of vomiting earlier today. They also noted that her urine smelled strongly in the last few days. She has also had a cough for the last week. Per reports, she had normal bowel movement yesterday without any blood in her stools. No fevers, chills, or sweats. Difficult to obtain additional information due to patient having Alzheimer's at baseline and family not being at bedside. PAST MEDICAL HISTORY: 1. Hypertension. 2. Valvular disease. 3. Hyperlipidemia. 4. Dementia. PAST SURGICAL HISTORY: 1. Hysterectomy. 2. Left knee surgery. SOCIAL HISTORY: The patient does not smoke or drink any alcohol. No illicit drug use. ALLERGIES: NO KNOWN DRUG ALLERGIES. CURRENT MEDICATIONS: 1. Levothyroxine. 2. Diclofenac. 3. Quetiapine. 4. Citalopram. PHYSICAL EXAMINATION: GENERAL: The appears well developed, is resting in bed, groaning occasionally. She does not seem to be in any acute distress VITAL SIGNS: Temperature 98.8, pulse 75, respirations 16, O2 saturation 98% on room air, blood pressure 99/53. HEENT: Normocephalic and atraumatic. Pupils are equal, round, and reactive to light. Sclerae without icterus. Difficult to assess oropharynx as patient not opening her mouth. She is sleeping. Also known to be easily agitated and combative due to dementia. NECK: Supple. No apparent discomfort with palpation. CARDIAC: Regular rate and rhythm. LUNGS: Clear bilaterally. No appreciable rales. ABDOMEN: Soft. Nondistended. No apparent discomfort with palpation. No apparent renal angle tenderness. EXTREMITIES: No lower leg edema or swelling. NEUROLOGIC: The patient with underlying dementia, noncommunicative. SKIN: Without rash or jaundice. LABORATORY DATA: White blood count 10.7, hemoglobin 8.7, hematocrit 26.6, platelets 256. PT 14.8, INR 1.2. Sodium 135, potassium 4.2, chloride 102, anion gap 17, carbon dioxide 20, BUN 74, elevated from previous level of 17, creatinine 2.45, also elevated from 0.72, GFR 19, elevated from last reading of 79 approximately 1 year ago. Lactic acid 1.5, calcium 7.7, total bilirubin 0.3, AST 39, ALT 30, alkaline phosphatase 252. Troponin negative. BNP 244. Albumin 2.8, lipase 75 Urine notable for 30 of protein, trace blood, positive nitrites, large leukocyte esterase, greater than 50 white blood cells, 4+ bacteria. IMAGING DATA: 1. Chest x-ray showed no acute findings. 2. CT brain showed cerebral volume loss. No intracranial hemorrhage or displaced calvarial fracture. IMPRESSION AND PLAN: Ms. Ho is a 77-year-old woman with Alzheimer's, who is noncommunicative and easily agitated, presenting with what is described as a syncopal episode while 2 family members were helping her walk. She did not sustain any injury and was lowered to the ground. She recovered within 30 seconds. Following assessment in the ED, she was diagnosed with urinary tract infection, put on antibiotics and admitted for further management. Upon review of her investigations, it is noted she has a severe acte kidney injury. Given the reports earlier in the day from the family of the patient having flank pain, there is a possibility she might have a ureteral stone/pyelonephritis. Her vital signs are notable for blood pressure of 99/53. White count unremarkable and lactic acid normal. Nonetheless, we will obtain a CT stone protocol. We will continue antibiotics and follow up on results. 1. Alzheimer's, resume Seroquel. 2. Hypothyroidism. We will request thyroid stimulating hormone, T4 and resume levothyroxine. 3. Syncope. We will obtain orthostatic blood pressures. We will add on magnesium. Further investigations to be determined by Day Team. 4. CT brain was negative and syncopal episode likely due to underlying infection and possibly kidney stone. 5. Gastrointestinal prophylaxis. 6. Deep venous thrombosis prophylaxis with mechanical sequential compression devices. 7. Code status unknown at present. The patient's case was discussed with attending who agrees upon care as described above. Job ID: [id number]
[2018-06-26 06:10] LABS: Hemoglobin 6.4 g/dL (12.0-16.0)
[2018-06-26] MEDS: Levothyroxine Sodium 50 MCG TAB PO SCH (07:30)
--- NOTE | 2018-06-26 07:32 | CT ---
PRELIMINARY REPORT/[facility]/EMERGENCY AFTER HOURS PROCEDURE: EXAM: CT Abdomen and Pelvis Without Contrast EXAM DATE/TIME: 06/26/2018 2:16 AM CLINICAL HISTORY: 77 years old, female; Abdominal pain; Prior surgery; Patient HX: 77f brought in via EMS for C/O syncopal episode at home. Also report C/O abdominal/left flank pain and 3 episodes of vomiting today, as well as foul smelling urine the past few days and some incontinence. Normal bm yesterday, no hematemesis, rectal bleeding or melena. Surgical history of hysterectomy TECHNIQUE: Imaging protocol: Axial computed tomography images of the abdomen and pelvis without contrast. COMPARISON: No relevant prior studies available. FINDINGS: Lower chest: Bilateral small pleural effusions. Few small pleural calcifications. Few small periphera l nonspecific nodular opacities. Moderate-sized hiatal hernia. Mild cardiomegaly. ABDOMEN: Liver: No acute findings. No mass. Gallbladder and bile ducts: No calcified stones. No ductal dilation. Pancreas: No acute findings. No ductal dilation. Spleen: No acute findings. No splenomegaly. Adrenals: No acute findings. No mass. Kidneys and ureters: No obstructing stone. No hydronephrosis. Stomach and bowel: Fecal loading. Diverticulosis. No evidence of bowel obstruction. Appendix: No evidence of appendicitis. PELVIS: Bladder: No stones. Reproductive: No acute findings. ABDOMEN and PELVIS: Intraperitoneal space: No free air. No significant fluid collection. Bones/joints: No acute fracture. Soft tissues: No acute findings. Vasculature: Atherosclerotic calcifications. No aortic aneurysm. Lymph nodes: No significant adenopathy. IMPRESSION: No acute findings within the abdomen and pelvis. Hiatal hernia. Small pleural effusions. Mild cardiomegaly. Other findings above. Thank you for allowing us to participate in the care of your patient. Dictated and Authenticated by: Miguel Angel Bean MD 06/26/2018 4:07 AM Central Time ([place] & [place]) FINAL REPORT CT ABDOMEN AND PELVIS PERFORMED ON AN EMERGENCY BASIS: Date: 06/26/18 Time: 0217 hours HISTORY: Left flank pain. FINDINGS/IMPRESSION: Agree with the preliminary report by Dr. Bean from [facility]. No CT evidence of urinary tract obstruction or calcification. Lack of contrast limits evaluation for other abnormalities. Small hiatal hernia. Small bilateral pleural effusions. Atherosclerosis. Transcribed Date/Time: 06/26/2018 7:44 AM
[2018-06-26 11:19] LABS: Albumin 2.2 g/dL (3.4-4.8); Anion Gap 11 mmol/L (10-20); BUN (Urea Nitrogen) 64 mg/dL (9.8-20.1); BUN/Creatinine Ratio 32.49; Calc. Creatinine Clearance 26 mL/min (70-130); Calcium 7.5 mg/dL (7.8-10.44); Carbon Dioxide 20 mmol/L (23-31); Chloride 109 mmol/L (98-107); Estimated GFR-MDRD 25; Glucose 86 mg/dL (83-110); Potassium 3.8 mmol/L (3.5-5.1); Sodium 136 mmol/L (136-145)
[2018-06-26 13:15] LABS: Iron Less than 8 ug/dL (50-170); Iron Binding Capacity, Total 160 mcg/dL (265-497)
[2018-06-26 14:05] LABS: Creatinine, Urine 53.5 mg/dL (47-110)
[2018-06-26 14:23] LABS: Ferritin 91.66 ng/mL (10-291); Free T4 (Free Thyroxine) 0.61 ng/dL (0.70-1.48); Thyroid Stimulating Hormone 0.9666 uIU/mL (0.35-4.94)
--- NOTE | 2018-06-26 15:10 | PRG ---
DATE OF SERVICE: 06/26/2018 SUBJECTIVE: The patient is seen and examined at the bedside. There are 2 family members, the patient's son and his present in the room during my visit. They stated that she was getting sicker gradually. Before several days ago, she was able to walk, but last few days, she stopped eating, stopped drinking, and became more comatose, and she slept a lot. There was no any fever or chills. OBJECTIVE: VITAL SIGNS: Blood pressure is 120/72, temperature is 97.3, pulse is 67, respiratory rate is 16, O2 saturation is 93% on room air. HEENT: Her pupils are very small. Sclerae are nonicteric. Oral mucosa is somewhat dry. NECK: Supple. LUNGS: Clear. HEART: S1 and S2 are normal. No S3. No S4. ABDOMEN: Soft and nondistended. Bowel sounds present. No organomegaly. EXTREMITIES: No clubbing, cyanosis, or edema. NEUROLOGIC: She is in comatose state. She is able to move her all 4 extremities. She is arousable, but she falls asleep quickly. SKIN: No rash or erythema. LABORATORY DATA: Hemoglobin down to 6.4, hematocrit 19.2. Chemistry shows sodium of 136, potassium 3.8, chloride 109, CO2 of 20, BUN 64, creatinine 1.97, calcium 7.5. Iron is less than 8, total iron binding capacity is 160. Phosphorus 4.0. Ammonia 34. Albumin 2.2. Urine creatinine is 53.5, urine sodium is 28, and random protein in urine is 25. Microbiology, presumptive E. coli. IMPRESSION: 1. mental status, could be related to current urinary tract infection. We will rehydrate her, give her Rocephin for her urinary tract infection and see whether she gets better. 2. Baseline Alzheimer dementia. 3. Hypothyroidism. 4. Normocytic anemia. PLAN: To transfuse her with 2 units of packed red blood cells. Check guaiac stool x1. Do echocardiogram. Check thyroid; free T3, free T4, and TSH. Case Management to be involved for [facility] placement. I believe that her pupils are small because of the Seroquel use, and this is going to get better. Job ID: [id number]
[2018-06-26] MEDS ORDERED: Dextrose 5%-Lactated Ringers 1,000 ML IV SCH (15:45)
[2018-06-26] MEDS ORDERED: Albumin 25% 25 GM/100 ML BOT IVPB SCH (16:15)
--- NOTE | 2018-06-26 16:57 | CON ---
DATE OF CONSULTATION: 06/26/2018 CONSULTING PROVIDER: GLORIA Gilbert. ATTENDING PHYSICIAN: Kamran Lang MD REASON FOR CONSULTATION: Acute kidney injury. HISTORY OF PRESENT ILLNESS: A 77-year-old female who was brought in by relatives after an episode of syncope. The patient reportedly has been progressively getting weak in the last few days prior to presentation associated with poor oral intake. The patient was being helped out of a chair and subsequently collapsed. She was reportedly laid on the floor with improvement in mental status within 30 minutes. There was no involuntary movements. She was subsequently found to have leukouria suggestive of UTI as well as acute kidney injury and was admitted for further evaluation and treatment. Nephrology consult was requested due to acute kidney injury. The patient was unable to provide any history as she was lethargic. Review of medical record, however, showed that the patient was started on antibiotic therapy for possible UTI. The patient also had CT scan of the abdomen and pelvis, which was grossly unremarkable. PAST MEDICAL HISTORY: 1. Hypertension. 2. Valvular heart disease. 3. Dementia. 4. Hypothyroidism. PAST SURGICAL HISTORY: 1. Hysterectomy. 2. Left knee surgery. FAMILY HISTORY: This could not be obtained due to patient factors. SOCIAL HISTORY: The patient reportedly lives with family. Does not drink, smoke, or use recreational drugs. ALLERGIES: NO KNOWN DRUG ALLERGIES REPORTED. PRIOR TO HOSPITAL MEDICATIONS: 1. Levothyroxine. 2. Diclofenac. 3. Seroquel. 4. Citalopram. CURRENT HOSPITAL MEDICATIONS: 1. Rocephin 1 g q.24 hours. 2. Levothyroxine 50 mcg daily. 3. Ondansetron p.r.n. for nausea, vomiting. 4. Acetaminophen p.r.n. REVIEW OF SYSTEMS: This could not be obtained due to patient factors. PHYSICAL EXAMINATION: VITAL SIGNS: Temperature 98.4, pulse 63, respiratory rate 16, SpO2 of 93% on room air. Blood pressure is 152/74. GENERAL: Lethargic, elderly female, in no obvious distress. The patient wakes up. She is able to tell me her first name. Afebrile. Anicteric. Acyanotic. HEENT: Normocephalic, atraumatic. Pupils are reacting to light. Oral mucosa is dry. NECK: Supple. Nontender with preserved range of motion. No masses appreciated. CARDIOVASCULAR: Regular rhythm and rate. Soft systolic murmur noted. RESPIRATORY: Good air entry bilaterally with some transmitted sounds. No crackle or rhonchi appreciated. GI: Full, soft with normal bowel sounds. Bilateral lower abdominal tenderness appreciated. EXTREMITIES: Mild bilateral feet edema. No erythema appreciated. NEUROLOGIC: The patient is lethargic. Able to tell me her first name. Memory lapse is appreciated. Moves all extremities to pain. DIAGNOSTIC DATA: CBC on June 25, 2018, showed WBC count of 7.7, hemoglobin of 8.7 , MCV of 89.1, platelet of 256. Hemoglobin repeated today was 6.4. CMP on presentation June 25, 2018, showed sodium 135, potassium 4.2, chloride 102 , CO2 of 20, anion gap 17, BUN 74, creatinine 2.45, glucose 121, calcium 7.7, total bilirubin 0.3, AST 39, ALT 38, alkaline phosphatase 250, total protein 5.7, albumin 2.8, globulin 2.9. Repeat BMP today showed sodium 136, potassium 3.8, chloride 109, CO2 of 20, BUN 64, creatinine 1.97, calcium 7.7, phosphorus 4.0, albumin 2.2. Iron chemistry showed serum iron less than 8, TIBC 160, ferritin 91.6. Urinalysis on presentation showed cloudy urine with specific gravity of 1.014, protein 30, trace blood, positive nitrite and leukocyte esterase. Microscopy showed 0-3 rbc, greater than 50 to amg-spbnrwar-sw-count wbc and 4+ bacteria. Random urine creatinine 53.5. Random urine sodium 28, random urine total protein 25 mg/dL. ASSESSMENT: 1. Acute kidney injury. The patient had normal creatinine of 0.72 on May 27, 2017. Creatinine is down already from 2.45-1.97. This most likely due to hemodynamic factors related to volume depletion and hypotension. The patient reportedly passed out and had low blood pressure at some point in the ED, which improved with IV fluid therapy. The patient reportedly has not been eating or drinking for a few days prior to presentation. Contribution from medication is also considered as the patient has diclofenac 75 mg [address]. b.i.d. as home medication. CT Abd/pelvis was negative for hydronephrosis 2. Acute encephalopathy: Most likely due to urinary tract infection as well as acute kidney injury. 3. Anemia: Acute drop from 8 to 6 overnight with IV fluid is due to correction of hemoconcentration. The patient clearly has iron deficiency anemia. Etiology is unclear, but GI blood loss cannot be ruled out. 4. Hypoalbuminemia: Most likely due to some form of malnutrition. Acute illness may also be contributory. 5. Hyperchloremic acidosis. 6. UTI: treatment as per primary attending. PLAN: 1. We will start the patient on gentle hydration with lactated Ringer's. 2. We will also give the patient albumin due to hypoalbuminemia and mild edema. 3. We will monitor renal function. Agree with blood transfusion. The patient also will benefit from IV iron treatment. GI consult should be considered for evaluation of chronic iron deficiency. Further evaluation and treatment as per primary attending. We will follow along with you. Job ID: [id number] [facility]
[2018-06-26] MEDS: cefTRIAXone\\ROCEPHIN 1 GM in Sodium Chloride 0.9% 100 ML IVPB SCH (21:25)
[2018-06-27] MEDS: Levothyroxine Sodium 50 MCG TAB PO SCH (06:03)
[2018-06-27 06:05] LABS: #Lymphocytes 1.5 thou/uL (1.20-3.40); #Monocytes 0.7 thou/uL (0.11-0.59); #Neutrophils 5.9 thou/uL (1.40-6.50); %Basophils 0.5 % (0.0-1.0); %Eosinophils 0.6 % (0.0-10.0); %Lymphocytes 18.4 % (21.0-51.0); %Monocytes 8.6 % (0.0-10.0); %Neutrophils 71.9 % (42.0-75.0); Hemoglobin 9.6 g/dL (12.0-16.0); Mean Corpuscular HGB CONC 33.3 g/dL (32.0-36.0); Mean Corpuscular Hemoglobin 29.5 pg (27.0-31.0); Mean Corpuscular Volume 88.4 fL (78.0-98.0); Mean Platelet Volume 9.4 fL (7.4-10.4); Platelet Count 197 thou/uL (130-400); RBC Distribution Width 14.9 % (11.5-14.5); Red Blood Cell (RBC) Count 3.25 mill/uL (4.20-5.40); White Blood Cell (WBC) Count 8.1 thou/uL (4.8-10.8)
[2018-06-27 06:16] LABS: Anion Gap 15 mmol/L (10-20); BUN (Urea Nitrogen) 42 mg/dL (9.8-20.1); Calc. Creatinine Clearance 36 mL/min (70-130); Calcium 8.2 mg/dL (7.8-10.44); Carbon Dioxide 18 mmol/L (23-31); Chloride 114 mmol/L (98-107); Estimated GFR-MDRD 36; Glucose 112 mg/dL (83-110); Potassium 4.3 mmol/L (3.5-5.1); Sodium 143 mmol/L (136-145)
[2018-06-27] MEDS ORDERED: Sodium Bicarbonate 150 MEQ in Dextrose 5% in Water 1,000 ML IV SCH (10:15)
--- NOTE | 2018-06-27 10:46 | PRG ---
DATE OF SERVICE: 06/27/2018 SUBJECTIVE: A 77-year-old female with known history of dementia, hypothyroidism , and hypertension, admitted due to worsening weakness and mental status change preceded by syncopal episode. The patient was found to have UTI and acute kidney injury and necessitating Nephrology consult. The patient remains lethargic, but seems more responsive today. She is able to wake up with stimulation, but remained largely nonverbal. OBJECTIVE: VITAL SIGNS: Temperature 98.6, pulse 61, respiratory rate 16, SpO2 of 92 on room air, blood pressure is 160/69. GENERAL: Elderly female, in no obvious distress. Opens eyes to stimulation. Afebrile. Anicteric. HEENT: Normocephalic, atraumatic. Oral mucosa is moist. CARDIOVASCULAR: Regular rhythm and rate. Normal heart sounds 1 and 2. RESPIRATORY: Good air entry bilateral with few transmitted sounds. No obvious crackle or rhonchi or use of accessory muscles appreciated. GI: Full, soft, with normal bowel sounds. Bilateral lower abdominal tenderness noted. EXTREMITIES: Trace bilateral leg edema. Feet edema noticed. No erythema or cyanosis appreciated. NEUROLOGIC: The patient is lethargic. Wakes up with stimulation. Able to say a few words. Moves all extremities to stimulation and localizes to pain. DIAGNOSTIC DATA: CBC showed a WBC count of 8.1, hemoglobin of 9.6, MCV of 88.4, platelets of 197. BMP showed sodium 143, potassium 4.3, chloride 114, CO2 of 18, BUN 42, creatinine 1.42, glucose 112, calcium 8.2. Urine culture grew E. coli, which is pansensitive. ASSESSMENT: 1. Acute kidney injury: Hemodynamic related to volume depletion and hypertension. Most likely due to infection and poor oral intake. Possible contribution from use of diclofenac considered. Creatinine is trending downward from admission level of 2.45 to 1.42. Not yet back to baseline. 2. Hyperchloremic metabolic acidosis. 3. Acute metabolic encephalopathy: Due to infection, superimposed on baseline dementia. 4. Anemia: Status post blood transfusion. 5. Hypoalbuminemia. 6. Escherichia coli urinary tract infection. PLAN: 1. We will discontinue LR and start sodium bicarbonate to correct hyperchloremic metabolic acidosis. This also will provide needed hydration to improve renal function. 2. We will monitor blood pressure closely with a view to starting antihypertensives. We will also check orthostatic vitals to rule out orthostatic hypotension and dizziness. 3. We will defer anemia and urinary tract infection treatment to the primary attending. 4. We will recheck renal function in the morning. Job ID: [id number] [facility]
[2018-06-27] MEDS ORDERED: Levothyroxine Sodium 100 MCG TAB PO SCH (11:00)
[2018-06-27] MEDS ORDERED: Levothyroxine Sodium 50 MCG TAB PO SCH (11:00)
--- NOTE | 2018-06-27 11:49 | MRI ---
MRI Brain W WO Con: 06/27/2018 10:31 AM CLINICAL HISTORY: Weakness, stroke. COMPARISON: CT head 06/25/2018 FINDINGS: Extra axial spaces: Prominence, due to moderate global atrophy. Acute infarction: None. Ventricular system: Ex vacuo dilatation. Basal cisterns: Normal. Cerebral parenchyma: Microvascular ischemic changes. Midline shift: None. Cerebellum: Normal. Brainstem: Normal. Paranasal sinuses:Scattered mucosal thickening. Intraaxial Enhancement: None IMPRESSION:No acute intracranial abnormality. Moderate global atrophy. Microvascular ischemic disease.
[2018-06-27 12:15] LABS: Reticulocyte Count 0.6 % (0.5-1.5)
[2018-06-27] MEDS ORDERED: Gadobenate Dimeglumine 529 MG/1 ML (20ML VIAL) ONE (13:09)
--- NOTE | 2018-06-27 16:29 | PRG ---
DATE OF SERVICE: 06/27/2018 SUBJECTIVE: The patient is seen and examined at the bedside, present in the room during my visit. Apparently, she is more responsive today, but still very sleepy, not eating much. Apparently, last night, she was given one dose of Seroquel and maybe this is one of the reasons why she is still is sleepy this morning. OBJECTIVE: VITAL SIGNS: Blood pressure is 152/81, pulse is 55, temperature is 97.5, respirations 16, O2 saturation is 95% on room air. GENERAL: She is opening her eyes, but she falls asleep very quickly. She tries to follow my commands, but she falls short very quickly most of the time. HEENT: Her pupils much bigger than what they were yesterday and conjunctivae are pinkish. Sclerae are nonicteric. Oral mucosa is still dry. NECK: Supple. LUNGS: Clear. HEART: S1 and S2, normal. No S3. No S4. ABDOMEN: Soft, nontender, nondistended. EXTREMITIES: No clubbing, cyanosis, or edema. NEUROLOGICAL: She is very comatose, falls asleep very quickly, but arousable. She moves her 4 extremities, but there is generalized weakness all over in upper and lower extremities. SKIN: No rash or erythema. LABORATORY DATA: Labs showed white count of 8.1, hemoglobin 9.6, hematocrit 28.7, platelet count is 197,000. Retic count is 0.8, immature retic fraction . Sodium is 143, potassium 4.3, chloride 114, CO2 of 18, BUN 42, creatinine 1.42, and glucose is 112, calcium 8.2. Lactate dehydrogenase is 219. Free T4 of 0.61, free T3 less than 1.0, and TSH 0.966. Microbiology, urine is growing E coli, which is pansensitive. IMPRESSION: 1. Comatose state of unclear etiology. The only finding we have at this point which could cause that is urinary tract infection. 2. Urinary tract infection with Escherichia coli. 3. Alzheimer's dementia. 4. Hypothyroidism. 5. Normocytic anemia. 6. Anemia, status post 2 units of red blood cells transfusion. Her hemoglobin is up to 9.6. It does not look like her bone marrow is very functional as her retic count is 0.6 only. 7. Hypothyroidism, on replacement. She has not been probably getting her Synthroid for the last several days that is why her numbers are very low. We are going to give her 100 mcg of Synthroid today and increase to 150 per day. This could be one of the reasons why she is kind of comatose and not responsive. The patient was seen by clinic office manager, Dr. Coleman, who recommends sodium bicarb drip for her metabolic acidosis, avoid any sedatives or any agents with sedative effect. We will get Neurology consultation with Dr. Manrique, ceftriaxone for her urinary tract infection. The rectal examination on her, there was a small amount of stool in the rectum, but the color of the stool was normal brownish. There were no black tarry stools or fresh blood. This is discussed with the son. Clinical Manager Home Care is consulted for the nursing placement post discharge. Job ID: [id number]
[2018-06-27] MEDS: cefTRIAXone\\ROCEPHIN 1 GM in Sodium Chloride 0.9% 100 ML IVPB SCH (21:32)
[2018-06-28 05:15] LABS: #Eosinphils 0.1 thou/uL (0.0-0.7); #Lymphocytes 2.2 thou/uL (1.20-3.40); #Monocytes 0.9 thou/uL (0.11-0.59); #Neutrophils 7.4 thou/uL (1.40-6.50); %Basophils 0.1 % (0.0-1.0); %Lymphocytes 20.7 % (21.0-51.0); %Monocytes 8.1 % (0.0-10.0); %Neutrophils 70.2 % (42.0-75.0); Hemoglobin 10.2 g/dL (12.0-16.0); Mean Corpuscular HGB CONC 32.8 g/dL (32.0-36.0); Mean Corpuscular Hemoglobin 29.3 pg (27.0-31.0); Mean Corpuscular Volume 89.3 fL (78.0-98.0); Mean Platelet Volume 8.8 fL (7.4-10.4); Platelet Count 256 thou/uL (130-400); White Blood Cell (WBC) Count 10.5 thou/uL (4.8-10.8)
[2018-06-28 05:32] LABS: Anion Gap 11 mmol/L (10-20); BUN (Urea Nitrogen) 31 mg/dL (9.8-20.1); Calc. Creatinine Clearance 44 mL/min (70-130); Calcium 8.4 mg/dL (7.8-10.44); Carbon Dioxide 27 mmol/L (23-31); Chloride 107 mmol/L (98-107); Estimated GFR-MDRD 45; Glucose 120 mg/dL (83-110); Potassium 4.4 mmol/L (3.5-5.1); Sodium 141 mmol/L (136-145)
[2018-06-28] MEDS ORDERED: Levothyroxine Sodium 125 MCG TAB PO SCH (06:00)
[2018-06-28] MEDS: Levothyroxine 150 MCG TAB PO SCH (06:41)
--- NOTE | 2018-06-28 09:19 | PRG ---
DATE OF SERVICE: 06/28/2018 SUBJECTIVE: A 77-year-old female admitted due to acute mental status change. The patient was found to have acute kidney injury and severe metabolic acidosis, necessitated Nephrology followup and evaluation. The patient is clinically improved. She is awake today and conversational, though confused. Denied nausea or vomiting. OBJECTIVE: VITAL SIGNS: Temperature 98.2, pulse 61, respiratory rate 16, SpO2 94% on room air, blood pressure is 156/74. GENERAL: Elderly female, in no distress. Afebrile. Anicteric. Acyanotic. HEENT: Normocephalic, atraumatic. Oral mucosa is moist. CARDIOVASCULAR: Regular rhythm and rate with normal heart sounds 1 and 2. RESPIRATORY: Good air entry bilaterally. Few right base crackles. No obvious rhonchi or use of accessory muscles appreciated. GASTROINTESTINAL: Full, soft, nondistended with normal bowel sounds. Bilateral lower abdominal tenderness noted. EXTREMITIES: Trace bilateral feet edema noticed. No cyanosis or erythema. NEUROLOGIC: The patient is awake and conversational. Memory lapses and confusion noticed. Moves all extremities. DIAGNOSTIC DATA: BMP showed sodium 141, potassium 4.4, chloride 107, CO2 of 27, anion gap 11, BUN 31, creatinine 1.16, glucose 120, calcium 8.4. CBC showed WBC count of 10.5, hemoglobin of 10.2, MCV of 89.3, platelet of 256. ASSESSMENT: 1. Acute kidney injury: Due to hemodynamic factors related to volume depletion and hypoperfusion. Creatinine is down to 1.1 from peak of 2.45. Baseline creatinine seems to be around 0.7 to 0.9. 2. Hyperchloremic metabolic acidosis: Resolved with sodium bicarbonate infusion. 3. Acute and metabolic encephalopathy due to urinary tract infection and acute kidney injury. Improving. 4. Hypoalbuminemia. 5. Escherichia coli urinary tract infection. 6. Anemia, status post blood transfusion. The patient has iron deficiency. 7. Hypertension: Blood pressure is marginally elevated in the ranges of 140s to 150s. The patient is currently on IV fluid. 8. Physical deconditioning PLAN: We will discontinue sodium bicarbonate infusion. We will observe blood pressure with a view to restarting antihypertensives, if the blood pressure is consistently elevated, following discontinuation of IV fluid. Defer Physical Therapy, treatment of UTI and acute encephalopathy to primary attending. We will recheck BMP in the morning. Job ID: [id number] [facility]
--- NOTE | 2018-06-28 14:19 | PDOC.PN ---
- Subjective Encounter Start Date: 06/28/18 Encounter Start Time: 14:13 Ms. Ho was seen today in follow-up of UTI and sepsis. She is more awake and alert today. Her daughter is concerned about her mother having back pain, and leg pain for the past month when she walks. She feels it is getting worse. - Objective MAR Reviewed: Yes Vital Signs & Weight: Vital Signs (12 hours) Temp Pulse Resp BP Pulse Ox 06/28/18 12:00 98.1 F 60 16 158/77 H 96 06/28/18 11:10 98.1 F 60 16 158/77 H 96 06/28/18 07:55 98.2 F 61 16 156/74 H 94 L 06/28/18 07:20 98.2 F 61 16 156/74 H 94 L 06/28/18 03:44 98.7 F 64 16 161/84 H 94 L Weight Admit Weight 153 lb 5 oz Weight 153 lb 5 oz I&O: 06/27/18 06/28/18 06/29/18 06:59 06:59 06:59 Intake Total 2100 1400 1150 Output Total 600 980 Balance 1500 1400 170 Result Diagrams: 06/28/18 04:21 06/28/18 04:21 Phys Exam - Physical Examination HEENT: PERRLA Respiratory: no wheezing, no rales, no rhonchi, clear to auscultation bilateral Cardiovascular: RRR, no significant murmur, no rub Gastrointestinal: soft, non-tender, no distention, positive bowel sounds Musculoskeletal: no edema, pulses present Neurological: non-focal she has good muscle strength in both legs, she is able to dorisflex the foot and toes bilaterally, + pain on internal and external roration Dx/Plan (1) UTI (urinary tract infection) Status: Acute Qualifiers: Urinary tract infection type: acute cystitis Hematuria presence: without hematuria Qualified Code(s): N30.00 - Acute cystitis without hematuria (2) Sepsis Code(s): A41.9 - SEPSIS, UNSPECIFIED ORGANISM Status: Acute Qualifiers: Sepsis type: sepsis due to unspecified organism Qualified Code(s): A41.9 - Sepsis, unspecified organism (3) Back pain Code(s): M54.9 - DORSALGIA, UNSPECIFIED Status: Acute (4) Hip pain Code(s): M25.559 - PAIN IN UNSPECIFIED HIP Status: Acute (5) KATHERYN (acute kidney injury) Code(s): N17.9 - ACUTE KIDNEY FAILURE, UNSPECIFIED Status: Acute Comment: resolving (6) Dementia Code(s): F03.90 - UNSPECIFIED DEMENTIA WITHOUT BEHAVIORAL DISTURBANCE Status: Chronic Qualifiers: Dementia type: unspecified type - Plan * UTI with sepsis- improving- urine is growing E. coli which is de la cruz-sensitive * Back pain and hip pain-I suspect due to OA- will check an X-ray of the lumbar spine * Dementia- stable * Acute kidney injury- improving * Plan is for [facility].
[2018-06-28] MEDS ORDERED: hydrALAZINE 25 MG TAB PO PRN (14:25)
--- NOTE | 2018-06-28 15:50 | RAD ---
LUMBAR SPINE THREE VIEWS: 06/28/2018 HISTORY: Back pain and difficulty walking. COMPARISON: None. FINDINGS: Multilevel lower lumbar spine facet hypertrophic change, most prominent at L4-L5 and at L5-S1. No an terolisthesis or retrolisthesis is noted. No acute fracture or dislocation. IMPRESSION: 1. Lower lumbar spine facet hypertrophic change. 2. No acute osseous abnormality. POS: [facility]
[2018-06-28] MEDS: cefTRIAXone\\ROCEPHIN 1 GM in Sodium Chloride 0.9% 100 ML IVPB SCH (21:42)
[2018-06-29] MEDS: Levothyroxine 150 MCG TAB PO SCH (06:02)
[2018-06-29 06:10] LABS: #Eosinphils 0.1 thou/uL (0.0-0.7); #Lymphocytes 2.6 thou/uL (1.20-3.40); #Monocytes 0.8 thou/uL (0.11-0.59); #Neutrophils 7.4 thou/uL (1.40-6.50); %Basophils 0.1 % (0.0-1.0); %Eosinophils 1.3 % (0.0-10.0); %Lymphocytes 23.7 % (21.0-51.0); %Monocytes 7.5 % (0.0-10.0); %Neutrophils 67.5 % (42.0-75.0); Hemoglobin 10.6 g/dL (12.0-16.0); Mean Corpuscular HGB CONC 31.8 g/dL (32.0-36.0); Mean Corpuscular Hemoglobin 28.6 pg (27.0-31.0); Mean Corpuscular Volume 89.7 fL (78.0-98.0); Mean Platelet Volume 8.4 fL (7.4-10.4); Platelet Count 309 thou/uL (130-400); Red Blood Cell (RBC) Count 3.71 mill/uL (4.20-5.40); White Blood Cell (WBC) Count 10.9 thou/uL (4.8-10.8)
[2018-06-29 06:32] LABS: Anion Gap 13 mmol/L (10-20); BUN (Urea Nitrogen) 22 mg/dL (9.8-20.1); Calc. Creatinine Clearance 48 mL/min (70-130); Calcium 8.4 mg/dL (7.8-10.44); Carbon Dioxide 24 mmol/L (23-31); Chloride 104 mmol/L (98-107); Estimated GFR-MDRD 51; Glucose 98 mg/dL (83-110); Potassium 4.7 mmol/L (3.5-5.1); Sodium 136 mmol/L (136-145)
[2018-06-29] MEDS ORDERED: Amlodipine 5 MG TAB PO SCH ×2 (10:00→10:15)
--- NOTE | 2018-06-29 10:32 | PRG ---
DATE OF SERVICE: 06/29/2018 SUBJECTIVE: A 77-year-old female with dementia, admitted due to acute mental status change and generalized weakness. Nephrology is following the patient for acute kidney injury. Mental status has improved. The patient was said to be conversational yesterday. She is, however, sleeping this morning. She wakes up and answers some questions. Denied any discomfort. Also, denied nausea, vomiting, or diarrhea. The patient is tolerating oral intake. OBJECTIVE: VITAL SIGNS: Temperature 98.4, pulse 58, respiratory rate 18, SpO2 is 94% on room air, and blood pressure is 163/82. It has been consistently elevated ranging from 140 to 170. GENERAL: Elderly female, in no obvious distress. The patient is sleeping, but she is easily arousable. Afebrile. Anicteric. Acyanotic. HEENT: Normocephalic and atraumatic. Oral mucosa is moist. CARDIOVASCULAR: Regular rhythm and rate with normal heart sounds 1 and 2. Soft systolic murmur noted. RESPIRATORY: Fair air entry bilaterally with no obvious crackle or rhonchi or use of accessory muscles. GI: Full, soft, nontender, and nondistended with normal bowel sounds. EXTREMITIES: Grossly normal looking, atraumatic with no obvious edema or erythema. NEUROLOGIC: Sleeping, but easily arousable. Oriented to person at least. Moves all extremities. DIAGNOSTIC DATA: CBC showed WBC count of 10.9, hemoglobin of 10.6, and platelet of 309. BMP showed sodium 136, potassium 4.7, chloride 104, CO2 of 24, BUN 22, creatinine 1.05, glucose 98, and calcium 8.4. Echocardiogram showed preserved EF and systolic function with EF of 60% to 65%. Features of diastolic dysfunction were noted as well as moderate right atrial enlargement and [id number] tricuspid regurgitation. ASSESSMENT: 1. Acute kidney injury: Due to volume depletion and hypoperfusion. Creatinine is almost back to baseline with creatinine of 1.05. Peak creatinine was 2.45. 2. Metabolic acidosis. Initially high anion gap and later hyperchloremic metabolic acidosis: Resolved with sodium bicarbonate. 3. Anemia: Status post blood transfusion. The patient also has iron deficiency anemia. 4. Hypertension: Echo showed features of hypertensive heart disease given diastolic dysfunction. PLAN: We will start low-dose amlodipine for blood pressure control. The patient already has a low heart rate with heart rate in the 50s, hence not a candidate for beta-rosangela. We will avoid nephrotoxic agents at this time. With near resolution of acute kidney injury, we will sign off at this time. Please call for any clarification or questions. Job ID: [id number]
--- NOTE | 2018-06-29 14:20 | PDOC.PN ---
- Subjective Encounter Start Date: 06/29/18 Encounter Start Time: 14:18 Ms. Ho was seen today in follow-up of UTI and sepsis. She is back to her baseline, according to her [id number] who is at bedside. - Objective MAR Reviewed: Yes Vital Signs & Weight: Vital Signs (12 hours) Temp Pulse Resp BP BP Pulse Ox 06/29/18 11:23 98.2 F 68 18 139/79 94 L 06/29/18 10:24 58 L 163/82 H 06/29/18 08:00 94 L 06/29/18 07:19 98.4 F 58 L 18 163/82 H 94 L 06/29/18 04:31 98.2 F 67 20 144/84 H 94 L Weight Admit Weight 153 lb 5 oz Weight 153 lb 5 oz I&O: 06/28/18 06/29/18 06/30/18 06:59 06:59 06:59 Intake Total 1400 2700 Output Total 3980 Balance 1400 -1280 Result Diagrams: 06/29/18 05:36 06/29/18 05:36 Phys Exam - Physical Examination HEENT: PERRLA Respiratory: no wheezing, no rales, no rhonchi, clear to auscultation bilateral Cardiovascular: RRR, no significant murmur, no rub Gastrointestinal: soft, non-tender, no distention, positive bowel sounds Musculoskeletal: no edema Dx/Plan (1) UTI (urinary tract infection) Status: Acute Qualifiers: Urinary tract infection type: acute cystitis Hematuria presence: without hematuria Qualified Code(s): N30.00 - Acute cystitis without hematuria (2) Sepsis Code(s): A41.9 - SEPSIS, UNSPECIFIED ORGANISM Status: Acute Qualifiers: Sepsis type: sepsis due to unspecified organism Qualified Code(s): A41.9 - Sepsis, unspecified organism (3) Back pain Code(s): M54.9 - DORSALGIA, UNSPECIFIED Status: Acute (4) Hip pain Code(s): M25.559 - PAIN IN UNSPECIFIED HIP Status: Acute (5) KATHERYN (acute kidney injury) Code(s): N17.9 - ACUTE KIDNEY FAILURE, UNSPECIFIED Status: Acute Comment: resolving (6) Dementia Code(s): F03.90 - UNSPECIFIED DEMENTIA WITHOUT BEHAVIORAL DISTURBANCE Status: Chronic Qualifiers: Dementia type: unspecified type - Plan * UTI with sepsis- resolving * Acute kidney injury- improved * [facility].
[2018-06-29 16:12] VITALS: BP 146/84; TEMP 97.7
[2018-06-30] MEDS ORDERED: Amlodipine 5 MG TAB PO SCH ×2 (09:00)
--- NOTE | 2018-06-30 09:04 | DIS ---
DATE OF ADMISSION: 06/25/2018 DATE OF DISCHARGE: 06/29/2018 PRIMARY CARE PHYSICIAN: Dr. Anthony Gary. DISCHARGE DISPOSITION: [facility]. DISCHARGE DIAGNOSES: 1. Urinary tract infection with metabolic encephalopathy. 2. Acute kidney injury. 3. Syncope, likely due to acute kidney injury. 4. Chronic diastolic heart dysfunction. 5. Osteoarthritis. 6. Valvular heart disease. 7. Hypothyroidism. DISCHARGE MEDICATIONS: Include: 1. Omnicef 300 mg twice daily. 2. Levothyroxine 150 mcg daily. 3. Florastor 250 mg daily. 4. Norvasc 2.5 mg daily. 5. Seroquel 100 mg q.h.s. 6. Escitalopram 5 mg daily. 7. Diclofenac 75 mg twice a day. PROCEDURES DONE: During the admission, the patient had a CT scan of the abdomen and pelvis, in which, there were no acute findings within the abdomen or pelvis. There was a small pleural effusion and mild cardiomegaly. The patient had a CT scan of the brain showing central volume loss. There was no intracranial hemorrhage. The patient had an MRI of the brain, in which there was no acute intracranial abnormality. There was moderate global atrophy and microvascular ischemic change. The patient had an echocardiogram, showing an ejection fraction that was estimated at 60% to 65% There was some E to A flow reversal noted suggestive of diastolic dysfunction. There was moderate to severe tricuspid regurgitation, moderately enlarged left and right atrium. CODE STATUS: Full code. ALLERGIES: NO KNOWN DRUG ALLERGIES. HOSPITAL COURSE: Ms. Ho is a very pleasant 77-year-old female, who was admitted to the hospital with a syncopal episode. The full details of which are outlined in the history and physical. She was found to have urinary tract infection, which eventually grew Escherichia coli. She was also found to have acute kidney injury, in which her creatinine had gone as high as 2.45. This is likely related to both volume depletion as well as the urinary tract infection. She was seen by Nephrology for the evaluation of this, and by the time of discharge, her renal function had completely returned to normal with a discharge creatinine of 1.05. She was also treated with IV antibiotics with regard to the urinary tract infection. The sensitivities from the Escherichia coli were sensitive to all antibiotics. When she was clinically stable, she was discharged to the [facility] nursing unit on Omnicef. Job ID: [id number]
--- NOTE | 2018-07-01 14:23 | EKG ---
Test Reason : Blood Pressure : / mmHG Vent. Rate : 087 BPM Atrial Rate : 087 BPM P-R Int : 126 ms QRS Dur : 084 ms QT Int : 356 ms P-R-T Axes : 039 032 050 degrees QTc Int : 428 ms Sinus rhythm with occasional Premature ventricular complexes Nonspecific ST and T wave abnormality Abnormal ECG Confirmed by ZENY PADILLA ([id number]), clinical editor LEWIS MARIN ([id number]) on 07/01/2018 2:22:50 PM Referred By: Confirmed By:ZENY PADILLA
== END 2018-06-29 16:46 | DRG 871 ==
LOC: ERS 19:33 → OBSVTOIN 23:39 → SURG A 23:39
PROVIDERS: ADMIT Internal Medicine; ATTEND Internal Medicine
PROC: 30233N1 Transfusion of Nonautologous Red Blood Cells into Peripheral Vein, Percutaneous Approach (ICD-10-PCS; principal; 2018-06-26)
DX: A41.9 Sepsis, unspecified organism (principal); G93.41 Metabolic encephalopathy; N30.00 Acute cystitis without hematuria; N17.9 Acute kidney failure, unspecified; E87.2 Acidosis; I50.32 Chronic diastolic (congestive) heart failure; E78.5 Hyperlipidemia, unspecified; I11.0 Hypertensive heart disease with heart failure; G30.9 Alzheimer's disease, unspecified; F02.80 Dementia in other diseases classified elsewhere, unspecified severity, without behavioral disturbance, psychotic disturbance, mood disturbance, and anxiety; E03.9 Hypothyroidism, unspecified; D64.9 Anemia, unspecified; E88.09 Other disorders of plasma-protein metabolism, not elsewhere classified; B96.20 Unspecified Escherichia coli [E. coli] as the cause of diseases classified elsewhere; M54.9 Dorsalgia, unspecified; M25.559 Pain in unspecified hip; Z90.710 Acquired absence of both cervix and uterus; Z79.899 Other long term (current) drug therapy
CPT/HCPCS: 36415; 36430; 51701; 70450; 70553; 71045; 72100; 74176; 80048; 80053; 80069; 81003; 81015; 82140; 82274; 82570; 82728; 83540; 83550; 83605; 83615; 83690; 83880; 84156; 84300; 84439; 84443; 84481; 84484; 85014; 85018; 85025; 85046; 85610; 86850; 86900; 86901; 87077; 87086; 87186; 93005; 93306; 96361; 96365; 96375; A4353; A9577; C9113; J0696; J2405; J3490; J7070; P9016; P9047